=== PATIENT | female | born 1990 | race Caucasian/White ===

== ENCOUNTER 2018-07-06 23:13 | Emergency (ER) | payer OTHER ==
--- NOTE | 2018-07-07 00:14 | EDPHY ---
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 In the room adjacent to the restaurant a chlorine dioxide gas palm was released. This happened at about 5:00 p.m.. At about 6: 00 p.m. The patient began to feel unwell, as if she was high, with some shortness of breath and pain in her chest. She felt a strain sensation in her tongue in nose. She felt nauseated and had an episode of vomiting. She now feels much better though has some mild lightheadedness and nausea.. REVIEW OF SYSTEMS 10 systems were reviewed and negative with the exception of the elements mentioned in the history of present illness. PMHx: Healthy Soc Hx: Works at a restaurant, cigarette smoker PHYSICAL General Appearance: Alert, no distress Eyes: Pupils equal and round no pallor or injection ENT, Mouth: Mucous membranes moist, posterior pharynx unremarkable Respiratory: There are no retractions, lungs are clear to auscultation Cardiovascular: Regular rate and rhythm Gastrointestinal: Abdomen is soft and non-tender, no masses, bowel sounds normal Neurological: A&O, moves all extremities Skin: Warm and dry, no rashes Musculoskeletal: Neck is supple non tender Extremities: symmetrical, full range of motion Psychiatric: Patient is oriented X 3, there is no agitation Source: Patient Exam Limitations: No limitations - Personal History LMP (Females 10-55): 1-7 Days Ago Current Tetanus Diphtheria and Acellular Pertussis (TDAP): Yes - Medical/Surgical History Hx Asthma: No Hx Chronic Respiratory Disease: No Hx Diabetes: No Hx Cardiac Disease: No Hx Renal Disease: No Hx Cirrhosis: No Hx Alcoholism: No Hx HIV/AIDS: No Hx Splenectomy or Spleen Trauma: No Other PMH: DENIES - Social History Smoking Status: Heavy smoker Constitutional: Initial Vital Signs Temperature (C) 36.4 C 07/06/18 23:20 Heart Rate 85 07/06/18 23:20 Respiratory Rate 16 07/06/18 23:20 Blood Pressure 118/67 07/06/18 23:20 O2 Sat (%) 99 07/06/18 23:20 O2 Delivery Mode Room Air Allergies/Adverse Reactions: acetaminophen [From Vicodin] Allergy (Verified 07/06/18 23:18) hydrocodone [From Vicodin] Allergy (Verified 07/06/18 23:18) Home Medications: Medication Instructions Recorded NK [No Known Home Meds] 07/06/18 Medical Decision Making Differential Diagnosis: 28-year-old female with chlorine dioxide gas exposure prior to arrival, presenting with nausea, vomiting, lightheadedness, some throat irritation. Here , she looks quite well, has normal vital signs, lungs are clear. We have contacted poison Control who recommends chest x-ray as needed, supportive measures such is nebulizers, p.o. Fluids, steam. I do not believe she has a chest x-ray. I have encouraged her to drink plenty of fluids. She will be discharged home. Departure - Departure Disposition: Home, Routine, Self-Care Clinical Impression: Chlorine gas exposure Condition: Good Instructions: Pneumonitis (ED) Additional Instructions: Please make sure to drink plenty of fluids. You may benefit from doing a steam shower. I suspect her symptoms will improve by tomorrow morning. You can contact poison Control at for further information about this exposure. Return to the ER if your worse in any way. Referrals: Glory Estes MD [[facility] [place] Primary Care Provider] - As per Instructions
[2018-07-07 00:40] VITALS: BP 115/74
== END 2018-07-07 00:41 | disposition home or self-care (01) ==
DX: R11.2 Nausea with vomiting, unspecified (principal); T59.4X4A Toxic effect of chlorine gas, undetermined, initial encounter; Y99.0 Civilian activity done for income or pay